=== PATIENT | female | born 2005 | race Caucasian/White ===

== ENCOUNTER 2024-04-20 15:27 | Emergency (ER) | payer OTHER, SELFPAY ==
--- NOTE | ~2024-04-20 | XR_ITS ---
CLINICAL HISTORY: pain swelling 3 views right hand Comparison: None Findings: No definite fractures or dislocations No significant arthritic change No erosions No radiopaque foreign body Impression: In the oblique view of the base of the 3rd metacarpal there is double density attributed to superimposition of the medial and lateral cortex. A nondisplaced hairline fracture can not be excluded in this location. Please check for point tenderness and correlate clinically. The right hand is otherwise unremarkable. This document has been electronically signed by: Arturo Crhistian MD on 04/20/2024 17:37:08
[2024-04-20 16:01] VITALS: BP 115/61; BP 134/72; PULSE 79; PULSE 86; RESP 18; O2SAT 97; BMI 44.6
--- NOTE | 2024-04-20 16:02 | ED_ITS ---
HPI - General Adult General Chief complaint: Extremity Problem Stated complaint: RT HAND INJ,+SWELLING PER EMS Time Seen by Provider: 04/20/24 16:02 History of Present Illness ED Provider: Cullen MARCOS narrative: The patient is a 19-year-old woman who was currently a psychiatric inpatient at the [facility]. She has been there for a few days. Today she spoke to her on the phone. He apparently told her that ?I need to be a better and mother. ? this made her feel bad about herself so she punched a wall and she punched herself in the head. She sustained bruising to the knuckles of the right hand. She was sent to the emergency room for evaluation here. She took a dose of ibuprofen before transfer. She has some pain Related Data Allergies Allergy/AdvReac Type Severity Reaction Status Date / Time No Known Allergies Allergy Verified 04/20/24 16:05 Review of Systems Review of Systems: Yes all other systems are reviewed and are negative PMF Past Medical History Medical History (Updated 04/20/24 @ 17:00 by Chevy Berman MD) History of depression History of risk factor for suicide Family history of drug abuse History of drug dependence/abuse Family History Family History (Updated 06/21/22 @ 09:59 by CECI Roe) Mother Drug abuse Father Heart disease Pulmonary disease Brother No problems noted. Family/Other No problems noted. Social History Social History Advance Directives: No Advance Directives Information Provided: No Physical Exam ED Vital Signs: Vital Signs - 24 hr 04/20/24 16:01 04/20/24 17:04 Temperature 98.1 F Pulse Rate 79 83 Respiratory Rate 18 16 Blood Pressure 115/61 94/45 L Pulse Oximetry 97 99 Oxygen Delivery Method Room Air Room Air BMI result Body Mass Index 44.6 Const Other: The patient is awake and alert. She is calm and cooperative. She does not appear acutely ill. BMI 44 HENMT Other: Face is symmetrical. Mucous membranes moist. Eyes General: appearance normal, both eyes and all related structures Neck Neck: Yes normal visual inspection and Yes full ROM Resp Effort & Inspection: normal respiratory effort Auscultation: clear to auscultation bilaterally Cardio Rate: regular rate Rhythm: regular rhythm Heart sounds: S1 normal heart sound present and S2 normal heart sound present Skin Other: There is bruising to the skin on the dorsum of the right hand over the MCP joints of the 3rd and 4th fingers. Neuro Other: The patient is awake and alert with a normal mental status. Cranial nerves are grossly intact. She has normal strength and sensation in her extremities. Extrem Other: The patient has signs of bruising over the 3rd and 4th metacarpals of the right hand with some extension of the bruising onto the dorsum of the hand itself. There is no deformity. There is generalized tenderness in the region of the bruising but no definite focal tenderness. Medical Decision Making Medical Decision Making MDM Narrative: The patient is a 19-year-old female who was currently an inpatient at the [facility]. She became upset today after speaking to her and punched her hand with some bruising. She was sent here on a section 21 for evaluation of this injury. She is currently calm and cooperative. We will get an x-ray to rule out a fracture. My suspicion is low. The patient had a hand x-ray that was read as showing no acute fracture although the radiologist indicated that on the oblique view there were overlapping shadows making it difficult to exclude a hairline fracture at the base of the 3rd metacarpal. The patient is not tender in this area. I do not think the patient has an acute fracture. The patient will be returned to her [facility]. Discharge Plan Discharge Clinical Impression: Traumatic ecchymosis of right hand Patient Disposition: Xfer Psychiatric Hosp Transfer Details: [facility] Additional Instructions: An x-ray of the right hand does not show any fracture. There is bruising of the right hand. Ibuprofen and acetaminophen as needed for pain. Referrals: [facility] [Outside] (No fracture to right hand injury) Print Language: Indian
[2024-04-20 17:04] VITALS: BP 94/45; PULSE 83; RESP 16; TEMP 36.7; O2SAT 99
== END 2024-04-20 19:31 ==
PROVIDERS: Emergency Provider Emergency Medicine
DX: S60.221A Contusion of right hand, initial encounter (principal); X58.XXXA Exposure to other specified factors, initial encounter; Y93.89 Activity, other specified; Y92.89 Other specified places as the place of occurrence of the external cause; Y99.8 Other external cause status
CPT/HCPCS: 73130; 99283

== ENCOUNTER → 2024-04-20 16:20 | Outpatient (BNV) | payer OTHER, SELFPAY | PROVIDERS: Emergency Provider Emergency Medicine; Visit Provider Radiology Diagnostic Radiology | DX: M79.641 Pain in right hand (principal) | CPT/HCPCS: 73130 ==

== ENCOUNTER 2025-01-01 20:52 | Emergency (ER) | payer OTHER, SELFPAY ==
--- NOTE | ~2025-01-01 | XR_ITS ---
CLINICAL HISTORY: back trauma 3 views lumbar spine Comparison: None provided Findings: Normal vertebral body alignment. No acute fractures or dislocation. No significant degenerative change. Mild lumbar dextroscoliosis, most likely positional in origin. IMPRESSION: No acute findings. This document has been electronically signed by: Rajat Haines MD on 01/01/2025 23:56:40
[2025-01-01 20:59] VITALS: BP 114/59; PULSE 89; RESP 16; TEMP 37; O2SAT 98; BMI 41.2
--- OUTSIDE RECORDS SUMMARY | 2025-01-01 22:06 | XMS_ITS | Clinical Summary ---
Author Organization [facility] Address [address] [place] [address] Care Team Providers Care Press Operator [employer] Name Role Phone Unavailable Primary Care Provider Unavailabl e Allergies No known active allergies Medications norelgestromin-eth in.estradioL (ORTHO EVRA) 150-35 mcg/24 hr Apply 1 patch each week for 3 weeks, then remove for 1 week. 3 patch 3 06/25/19 24 Active Additional Information Patient not taking.Reported on 07/05/2023 ferrous sulfate 325 mg (65 mg iron) tablet Take 1 tablet (325 mg total) by mouth daily with breakfast. 90 tablet 3 01/11/20 24 025 Active diclofenac (VOLTAREN) 1% gel Apply 2 g topically to the affected area 4 times a day. 200 g 1 01/11/20 24 Active cyclobenzaprine (FLEXERIL) 10 mg tablet Take 1 tablet (10 mg total) by mouth 2 times a day as needed for muscle spasms. 60 tablet 01/28/20 24 Active ondansetron (ZOFRAN ODT) 4 mg disintegrating tablet Dissolve 1 tablet (4 mg total) in the mouth every 8 hours as needed for nausea or vomiting for up to 5 days. 15 tablet 02/27/20 24 Active Active Problems Problem Noted Date Diagnosed Date Iron deficiency anemia 07/16/2023 Assessment & Plan (07/16/2023 4:25 PM EDT): Start ferrous sulfate 325 mg one tablet a day with orange juice Increase foods rich in iron spinach, lentils, beans, fortified cereals etc. Thoracic spine pain 07/02/2023 Chronic bilateral low back pain with bilateral s ciatica 06/26/2023 Assessment & Plan (01/12/2024 11:00 AM EDT): Refilled Ibuprofen 800 mg 3 times a day PRN Topical Diclofenac Referral to Physical therapy today Back stretching exercises printout handed to patient. Apply heat to the area Referral for order processing specialist in [facility] if insurance allows. Assessment & Plan (06/26/2023 10:21 AM EDT): Trial of diclofenac topical gel Referral to Physical therapy today Back stretching exercises printout handed to patient. Apply heat to the area Class 3 severe obesity due t o excess calories without serious comorbidity with body mass index (BMI) of 45.0 to 49.9 in adult 06/26/2023 Assessment & Plan (01/12/2024 10:58 AM EDT): - Patient is interested in going to the gym for exercising - Trial of low dose weekly Wegovy - increase vigorous exercise, fruits, vegetables, decrease fast food meals, carbohydrates and high starch foods - referral to margin trimmer today - follow up weight check in 1 month Assessment & Plan (06/26/2023 10:23 AM EDT): Patient is interested in going to the gym for exercising She will be referred to C3 coordinator to see if she qualifies for transportation Patient will make lifestyle and dietary modifications Amenorrhea 05/24/2023 Recurrent major depressive disorder 05/24/2023 Anxiety 05/24/2023 PTSD (post-traumatic stress disorder) 05/24/2023 Sheltered homelessness 05/24/2023 Assessment & Plan (01/12/2024 11:01 AM EDT): Relocated from [facility] Currently living in a senior living with spouse and 1 year old baby Currently working with [employer] Assessment & Plan (07/16/2023 4:25 PM EDT): Relocated from [facility] Currently living in a senior living with spouse and 5 months old baby Currently working with [employer] [facility] and has been [facility] since last visit Assessment & Plan (07/02/2023 12:51 PM EDT): Relocated from [facility] Currently living in a senior living with spouse and 5 months old baby Currently working with [employer] Referral placed for [facility] C3 coordination and has been activated since last visit Assessment & Plan (06/26/2023 10:24 AM EDT): Relocated from [facility] Currently living in a senior living with spouse and 5 months old baby Currently working with [employer] Referral placed for [facility] C3 coordination today. Assessment & Plan (05/24/2023 1:05 PM EST): Relocated from [facility] Currently living in a senior living with spouse and 5 months old baby Currently working with [employer] History of ectopic 05/24/2023 Resolved Problems Problem Noted Date Diagnosed Date Resolved Date Dysuria 07/16/2023 07/16/2023 Lumbar back pain 07/02/2023 01/12/2024 Assessment & Plan (07/02/2023 12:50 PM EDT): Start physical therapy Continue Ibuprofen Apply heat Xray ordered to rule out other etiology Chronic right lower quadrant pain 05/24/2023 01/12/2024 Assessment & Plan (07/16/2023 4:26 PM EDT): Negative test in office Abdominal ct scan with contrast (patient will call to r/s appointment) BMP order labs for updated GFR normal Seek emergency service sooner if pain worsens, fever, nausea, vomiting, etc. Assessment & Plan (07/02/2023 12:49 PM EDT): Negative test in office Abdominal ct scan with contrast pending appointment 07/11/2023 BMP order labs for updated GFR normal Seek emergency service sooner if pain worsens, fever, nausea, vomiting, etc. Assessment & Plan (06/26/2023 10:22 AM EDT): Negative test in office Abdominal ct scan with contrast ordered BMP order labs for updated GFR ordered Seek emergency service sooner if pain worsens, fever, nausea, vomiting, etc. Assessment & Plan (05/24/2023 1:02 PM EST): Positive test Differential diagnosis: Acute appendicitis, ectopic , Pending HCG serum labs Pending ultrasound appointment today. Pending follow up with [facility] [facility] this afternoon Seek emergency service sooner if pain worsens, fever, nausea, vomiting, etc. Encounters Date Type Department Care Team Description 10/15/2024 Refill [facility] [address] [facility] [address] [place] [address] Carmen Alarcon NP from Last 3 Months Immunizations Immunization Administration Dates Next Due Covid-19, Pfizer, mRNA, [place] valent, PF, 30 mcg/0.3 mL dose, manuel-sucrose (COMIRNATY)(for ages 12 and older) 06/21/2022,05/09/2022 INFLUENZA, SPLIT VIRUS, TRIVALENT, PF 01/11/2024 Influenza, Injectable, Quadrivalent, Preservativ e Free 06/25/2023,05/09/2022 Tetanus Toxoid, Reduced Diph theria Toxoid, and Acellular Pertussis Vaccine, Adsorbed 09/26/2022 Family History Medical History Relation Name Comments Alcohol abuse Brother Asthma Father Hypertension Father Breast cancer Mother Substance Abuse Mother Relation Name Status Comments Brother Father Mother Social History Tobacco Use Types Packs/Day Years Used Date Smoking Tobacco: Former Cigarettes Q uit: 2020 Smokeless Tobacco: Never Tobacco Cessation:Counseling Given: Not Answered Comments:Quit about 2.5 years ago Alcohol Use Standard Drinks/Week Comments Not Currently 0 (1 standard drink = 0.6 oz pur e alcohol) Comments No Sex and Gender Information Value Date Recorded Sex Assigned at Female 05/22/2023 12:50 PM EST Legal Sex Female 2:58 PM EST Gender Identity Female 05/22/2023 1:12 PM EST Sexual Orientation Choose not to disclose 2023 1:12 PM EST Sexual Orientation Straight 05/22/2023 1: 12 PM EST Last Filed Vital Signs Vital Sign Reading Time Taken Comments Blood Pressure 100/60 01/11/2024 2:00 PM EDT Pulse 74 01/11/2024 2:00 PM EDT Temperature 36.4 C (97.5 F) 01/11/2024 2:00 PM EDT Respiratory Rate 19 05/22/2023 6:17 PM EST Oxygen Saturation 99% 07/16/2023 3:54 PM EDT Inhaled Oxygen Concentration - - Weight 121 kg (266 lb 12.1 oz) 01/11/2024 2:00 P M EDT Height 162.6 cm (5' 4.02 ) 01/11/2024 2:00 PM ED T Body Mass Index 45.77 01/11/2024 2:00 PM EDT Plan of Treatment Health Maintenance Due Date Last Done Comments Hepatitis C Screening 2004 1 Week [facility] 2004 1 Month [facility] 2004 2 Month [facility] 2004 4 Month [facility] 2004 6 Month [facility] 2004 9 Month [facility] 2004 12 Month [facility] 04/09/2005 15 Month [facility] 06/26/2005 18 Month [facility] 09/24/2005 24 Month [facility] 03/23/2006 30 Month [facility] 07/27/2006 3 to 20 Year [facility] 2007 Well Child Check 2007 HPV Vaccines (1 - 3-dose series) 2019 DTaP,Tdap,and Td Vaccines (2 - Td or Tdap) 10/24/2022 09/26/2022 Depression Screening and Follow-Up 04/09/2024 07/02/2023 Social Drivers of Health Annual Screening 04/09/2024 Chlamydia Screening 05/24/2024 05/24/2023 COVID-19 Vaccine (3 - 2024-2 6 season) 2024 06/21/2022, 05/09/2022 Influenza Vaccine (#1) 2024 , 06/25/2023, 05/09/2022 RSV Vaccine (60+ years old and patients) (1 - 1-dose 75+ series) 2079 HIV Screening Completed 07/02/2023 Oral Health Screening Discontinued 07/16/2023 Hepatitis B Vaccines Discontinued MMR Vaccines Discontinued Meningococcal Vaccine Aged Out No nat sridevi eligible based on patient's age to complete this topic Pneumococcal Vaccine: Pediatric (0-5 Years) and At-Risk Patients (6-50 Years) Aged Out No longer eligible based on patient's age to complete this topic Varicella Vaccines Discontinued Goals Goal Patient Goal Type Associated Problems Recent Progress Patient-Stated? Author [facility] - SDOH/Barriers to Care Goal General Yes Sarah Castro Note: Pt stated she is currently residing in a senior living with and child. Pt is working with a pillowcase cleaner at the senior living, who has been providing housing applications to be completed. Pt has also created a [employer] application and completed Section 8 application at this time. Procedures * Due to [place] [employer] law, this organization might not be sharing negative HIV tests. Procedure Name Priority Date/Time Associated Diagnosis Comments HIV AB/P24 AG WITH REFLEX - P - [id number] Routine 07/02/2023 10:52 AM EDT Screening due CHLAMYDIA/GC AMPLIFICATION - P - [id number] Routine 05/24/2023 12:00 PM EST Screening for viral and chlamydial diseases from Last 3 Months or Most Recently Relevant to Health Maintenance Results * Due to [place] [employer] law, this organization might not be sharing negative HIV tests. * HIV Ab/p24 Ag with Reflex (07/02/2023 10:52 AM EDT) HIV Scr 4th Gen Non Reactive Non Reactive [facility] Comment: HIV Negative HIV-1/HIV-2 antibodies and HIV-1 p24 antigen were NOT detected. There is no laboratory evidence of HIV infection. Blood Structure of peripheral vein / Unknown 07/02/2023 10:52 AM EDT 07/02/2023 Narrative [facility] - 07/03/2023 1:06 PM EDT Performed at: - [facility] [address] [id number] Family Practice Physician Assistant: Sarahy Carter MD, Phone: [phone] us Carmen Alarcon NP AMB [facility] ORDERABLES Final R esult [facility] * Chlamydia/GC Amplification (05/24/2023 12:00 PM EST) C trach NAYA Negative Negative [facility] N gonorrhoeae NAYA Negative Negative [facility] Urine Urine specimen collection, clean catch / Unknown 05/24/2023 12:00 PM EST 05/24/2023 Comment:MAEVE Jeannette [facility] - 05/26/2023 4:07 PM EST Performed at: 01 - [facility] [address] [id number] Family Practice Physician Assistant: Sarahy Carter MD, Phone: [phone] us Carmen Alarcon MAINTENANCE JOURNEYMAN AMB [facility] ORDERABLES Final R esult [facility] from Last 3 Months or Most Recently Relevant to Health Maintenance Insurance [address] [place], [place] [id number]
--- OUTSIDE RECORDS SUMMARY | 2025-01-01 22:06 | XMS_ITS | Encounter Summary ---
Author Organization [facility] Address [address] [place] [address] Care Team Providers Care Manager Production Name Role Phone Dorian SAYRA Primary Care Provider [phone] Encounter Details Date Type Department Care Team (Late st Contact Info) Description 07/24/2023 Orders Only [facility] [address], [place] [id number] Simone Sheppard MD [address] [place] [address] Social History Tobacco Use Types Packs/Day Years Used Date Smoking Tobacco: Former Cigarettes Q uit: 2020 Smokeless Tobacco: Never Comments:Quit about 2.5 year s ago Alcohol Use Standard Drinks/Week Comments Not [...] Orientation Straight 05/22/2023 1: 12 PM EST documented as of this encounter Plan of Treatment Not on file documented as of this encounter Goals Goal Patient Goal Type Associated Problems Recent Progress Patient-Stated? Author [facility] - SDOH/Barriers to Care Goal General Yes Sarah Castro Note: Pt stated she is currently residing in a halfway with and child. Pt is working with a spring encaser at the halfway, who has been providing housing applications to be completed. Pt has also created a [employer] application and completed Section 8 application at this time. documented as of this encounter Visit Diagnoses Not on filedocumented in this encounter Care Teams Manager Production Relationship Specialty Start Date End Date Carmen Alarcon NP [address] [place] [address] PCP - General Nurse Practitioner Family 04/20/2308/07 documented as of this encounter
--- OUTSIDE RECORDS SUMMARY | 2025-01-01 22:06 | XMS_ITS | Patient Health Record ---
Author Organization [facility] Address [address] [place] [address] Care Team Providers Care Industrial Custodian Name Role Phone NO, PCP Primary Care Provider Sergio Sweeney Unavailable [phone] Reason For Referral No Information Plan Of Treatment No Information Insurance Providers Payer Name Payer Address Payer Phone Subscriber Number Group Number Insured Name Patient Relationship to Insured Coverage Start Date Coverage End Date [place] Medicaid Standard [address] [place] [address] [id number] MILAD Bush Self - patient is the insured 3
--- OUTSIDE RECORDS SUMMARY | 2025-01-01 22:06 | XMS_ITS | Encounter Summary ---
Author Organization [facility] Address [address] [place] [address] Care Team Providers Care Piano Teacher Name Role Phone Carmen Alarcon NP Primary Care Provider [phone] Encounter Details Date Type Department Care Team (Late st Contact Info) Description 06/26/2023 Orders Only [facility] Interventional Radiology [address] [place], [place] [id number] Valdemar Espino MD [address] [place] [address] Social History Tobacco Use Types [...] stated she is currently residing in a group home with and child. Pt is working with a caser shoe parts at the group home, who has been providing housing applications to be completed. Pt has also created a [employer] application and completed Section 8 application at this time. documented as of this encounter Visit Diagnoses Not on filedocumented in this encounter Care Teams Piano Teacher Relationship Specialty Start Date End Date Carmen Alarcon NP [address] [place] [address] PCP - General Nurse Practitioner Family 04/20/2308/07 documented as of this encounter
--- OUTSIDE RECORDS SUMMARY | 2025-01-01 22:06 | XMS_ITS | Encounter Summary ---
Author Organization [facility] Address [address] [place] [address] Care Team Providers Care Care Navigator Name Role Phone Carmen Alarcon NP Primary Care Provider [phone] Encounter Details Date Type Department Care Team (Late st Contact Info) Description 05/25/2023 Transcribe Orders [facility] Pharmacy Department [address] [place] [address] Kathleen Mcdonnell PharmD Social History Tobacco Use Types Packs/Day Years Used Date Smoking Tobacco: Former Cigarettes Q uit: 2020 Smokeless Tobacco: Never Comments:Quit about 2.5 year s ago Alcohol Use Standard Drinks/Week Comments Not Currently 0 (1 standard drink = 0.6 oz pur e alcohol) Comments Yes Sex and Gender Information Value Date Recorded Sex Assigned at Female 05/22/2023 12:50 PM EST Legal Sex Female 2:58 PM EST Gender Identity Female 05/22/2023 1:12 PM EST Sexual Orientation Choose not to disclose 2023 1:12 PM EST Sexual Orientation Straight 05/22/2023 1: 12 PM EST documented as of this encounter Plan of Treatment Not on file documented as of this encounter Visit Diagnoses Not on filedocumented in this encounter Care Teams Care Navigator Relationship Specialty Start Date End Date Carmen Alarcon NP [address] [place] [address] [place] [address] PCP - General Nurse Practitioner Family 04/20/2308/07 documented as of this encounter
--- NOTE | 2025-01-01 23:13 | ED.GENADULT ---
[facility] - General Adult General Chief complaint: Back Pain/Injury Stated complaint: back injury (fall) Time Seen by Provider: 01/01/25 22:06 Source: patient Mode of arrival: ambulatory Limitations: no limitations History of Present Illness ED Provider: Dr. Sheehan [facility] narrative: 19-year-old female presented hospital today for evaluation after a ground level fall. She is complaining of low back pain. Currently going through therapy for a spondylosis complaining of mild low back pain. Able to ambulate on scene without any issues. Denies any pain in the chest or abdomen. Related Data Previous Rx's ?Medication ?Instructions ?Recorded ibuprofen 400 mg tablet 400 mg PO Q8H PRN pain #30 tabs 01/02/25 Allergies Allergy/AdvReac Type Severity Reaction Status Date / Time No Known Allergies Allergy Verified 01/01/25 21:03 Review of Systems Review of Systems: Pertinent review of systems as mentioned in [facility]. All other system otherwise negative. [facility] Past Medical History [facility] Narrative: Medical history as mentioned in [facility] Medical History (Updated 01/02/25 @ 00:05 by Savana Sheehan DO) History of depression History of risk factor for suicide Family history of drug abuse History of drug dependence/abuse Family History Family History (Updated 06/21/22 @ 09:59 by CECI Roe) Mother Drug abuse Father Heart disease Pulmonary disease Brother No problems noted. Family/Other No problems noted. Social History Social History Advance Directives: No Advance Directives Information Provided: Yes Do you have a plan to hurt others: No Plan Physical Exam ED Exam Exam: General: Pleasant, no distress, interacting appropriately Head: Normacephalic, atraumatic Gastrointestinal: Soft, non distended, non tender, non guarding Extremities: Able to move all 4 extremities. Able to bear weight on lower extremity. Low suspicion for hip fracture, low lumbar spine tenderness on palpation Neurological: Awake and alert, no facial droop noted Skin: Warm and dry Psychiatric: Appropriate mood and thoughts Vital Signs: Vital Signs - 24 hr 01/01/25 20:59 01/02/25 00:10 Temperature 98.6 F 98.6 F Pulse Rate 89 89 Respiratory Rate 16 16 Blood Pressure 114/59 L 114/59 L Pulse Oximetry 98 98 Oxygen Delivery Method Room Air Room Air BMI result Body Mass Index 41.2 Medical Decision Making Medical Decision Making MDM Narrative: 19-year-old female presented hospital today after falling a ground level fall at the store. Patient is complaining of low back pain. I have low suspicion for lumbar fracture. Patient is able to ambulate without any issues. She does not appear to be in acute distress at this time. We will obtain a x-ray of the lumbar spine to screen for possible fracture or traumatic injury. I assess her lumbar x-ray. No signs of fracture. Patient will be discharged at this time. Differential Diagnosis Differential Diagnoses: The differential diagnosis associated with the presentation includes Lumbar fracture, lumbar strain, musculoskeletal spasm Discharge Plan Discharge Clinical Impression: Fall Qualifiers: Encounter type: initial encounter Qualified Code(s): W19.XXXA - Unspecified fall, initial encounter Low back pain Qualifiers: Chronicity: acute Back pain laterality: unspecified Sciatica presence: without sciatica Qualified Code(s): M54.50 - Low back pain, unspecified Patient Disposition: Home, Self-Care Prescriptions: New ibuprofen 400 mg tablet 400 mg PO Q8H PRN (Reason: pain) Qty: 30 0RF Interventions: ED Discharge Assessment Last Done: 01/02/25 00:10 Discharge Date/Time: 01/02/25 00:10 Print Language: Swedish
[2025-01-02 00:10] VITALS: BP 114/59; PULSE 89; RESP 16; TEMP 37; O2SAT 98
== END 2025-01-02 00:10 | disposition home or self-care (01) ==
PROVIDERS: Emergency Provider Student in an Organized Health Care Education/Training Program
DX: M54.50 Low back pain, unspecified (principal); W19.XXXA Unspecified fall, initial encounter
CPT/HCPCS: 72100; 99282; 99283

== ENCOUNTER → 2025-01-01 23:18 | Outpatient (BNV) | payer OTHER, SELFPAY | PROVIDERS: Emergency Provider Student in an Organized Health Care Education/Training Program; Visit Provider Radiology Diagnostic Radiology | DX: M54.50 Low back pain, unspecified (principal); W19.XXXA Unspecified fall, initial encounter | CPT/HCPCS: 72100 ==